=== PATIENT | female | born 1990 | race Caucasian/White ===

== ENCOUNTER 2024-02-23 10:30 | Outpatient (REF) | payer OTHER, SELFPAY ==
--- NOTE | ~2024-02-23 | US_ITS ---
EXAMINATION: US PELVIS COMPLETE TRANSVAGINAL PELVIC ULTRASOUND: CLINICAL INFORMATION: Pelvic and perineal pain. COMPARISON: None TECHNIQUE: Transabdominal imaging initially performed. For more definitive evaluation of the endometrium and ovaries, transvaginal technique was employed. FINDINGS: Uterus is retroverted measuring 6.9 x 3.8 x 5.0cm. Uterine volume is 69 mL. 1.0 x 0.7 x 1.2 cm and 0.5 x 0.3 x 0.7 cm uterine fibroids are seen. Endometrium measures 0.5 cm. Right ovary measures 2.2 x 2.1 x 2.0 cm for a volume of 4.7 mL. The left ovary measures 2.2 x 2.0 x 1.7 cm for a volume of 3.9 mL. There is small amount pelvic free fluid. US/US pelvic and transvaginal IMPRESSION: Small uterine fibroids. Small amount of free pelvic fluid.
== END 2024-02-23 10:31 | disposition home or self-care (01) ==
LOC: HO.UMASIMG 10:30
PROVIDERS: Visit Provider Nurse Practitioner Women's Health
DX: R10.2 Pelvic and perineal pain (principal)
CPT/HCPCS: 76830; 76856